=== PATIENT | female | born 1990 | race Two or more races ===

== ENCOUNTER 2024-02-06 20:20 | Emergency (ER) | payer SELFPAY ==
[2024-02-06 20:21] VITALS: PULSE 96; RESP 20; O2SAT 99
[2024-02-06 21:41] VITALS: BP 155/93; PULSE 84; RESP 18; TEMP 36.9; O2SAT 98
--- NOTE | 2024-02-06 22:18 | XR_ITS ---
Examination: Hand, left 3 views Technique: Hand AP, oblique, lateral 3 views Date and time of exam: February 16, 2024 1025 hrs. Indications: Injured the hand today, hand pain Findings: No acute fracture No dislocation No foreign body Impression: No acute fracture
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
== END 2024-02-07 01:06 | disposition home or self-care (01) ==
PROVIDERS: Emergency Provider Emergency Medicine
DX: S60.222A Contusion of left hand, initial encounter (principal); W22.8XXA Striking against or struck by other objects, initial encounter
CPT/HCPCS: 73130; 99283

== ENCOUNTER 2024-02-20 13:44 | Emergency (ER) | payer SELFPAY ==
[2024-02-20 13:56] VITALS: BP 114/77; PULSE 90; RESP 18; TEMP 36.9; O2SAT 98
--- NOTE | 2024-02-20 14:03 | XR_ITS ---
Examination: Complete OB ultrasound greater than 14 weeks Date and time of exam: February 20, 2024 1433 hrs. Indications: Decreased movement today Findings: Viable intrauterine single fetus with single amniotic sac presentation transverse head right lower abdomen Cardiac motion 141 BPM Placenta posterior lower Partial placenta previa grade 1 Umbilical cord insertion seen Adequate amniotic fluid Cervix 3.5 cm Right ovary 2.6 x 1.8 cm, left ovary obscured by bowel gas. Composite estimated gestational age based on BPD, head circumference, abdominal circumference, femur length is 15 weeks 0 days Estimated weight 107 g. Survey of intracranial anatomy, spinal anatomy, abdominal anatomy, four-chamber heart performed with no abnormalities identified. Impression: Viable intrauterine gestation transverse presentation Recommend two-week follow-up to assess placental position and exclude partial placenta previa
--- NOTE | 2024-02-20 14:03 | PD.EDRME ---
Rapid Medical Screening Exam RME Arrival date/time: 02/20/24 13:44 33-year-old female presents to the emergency department today complaints of not feeling her baby move for the last week patient reports being approximately 18 weeks Chief Complaint: General Adult/Misc Complain Time Seen by Provider: 02/20/24 13:47 Vital signs: Vital Signs Temperature 98.4 F 02/20/24 13:56 Pulse Rate 90 02/20/24 13:56 Respiratory Rate 18 02/20/24 13:56 Blood Pressure 114/77 02/20/24 13:56 Pulse Oximetry (%) 98 02/20/24 13:56 Oxygen Delivery Method Room Air 02/20/24 13:56
[2024-02-20 14:40] LABS: Collection Type, Urine Clean Catch
[2024-02-20 14:46] LABS: Basophils # (Auto) 0.1 Thou/mm3 (0.0-0.2); Basophils % (Auto) 1 % (0-2.5); Eosinophils # (Auto) 0.3 Thou/mm3 (0.0-0.5); Eosinophils % (Auto) 3 % (0-10); Hematocrit 35.5 % (36.0-46.0); Hemoglobin 11.9 g/dL (12.0-16.0); Immature Granulocytes % (Auto) 0 % (0-0); Immature Granulocytes Auto 0.04 Thou/mm3 (0.00-0.00); Lymphocytes % (Auto) 27 % (10-50); Mean Corpuscular HGB Conc 33.5 g/dl (31.0-37.0); Mean Corpuscular Hemoglobin 25.2 pg (25.0-35.0); Mean Corpuscular Volume 75 fL (80-100); Monocytes # (Auto) 0.5 Thou/mm3 (0.0-0.8); Monocytes % (Auto) 4 % (0-12); Neutrophils # (Auto) 7.2 Thou/mm3 (1.8-7.7); Neutrophils % (Auto) 65 % (37-80); Nucleated Red Blood Cell % 0 /100 WBC (0); Platelet Count 299 Thou/mm3 (140-440); RDW Standard Deviation 47.9 fL (36.4-46.3); Red Blood Count 4.72 Miln/mm3 (4.00-5.20); White Blood Count 11.1 Thou/mm3 (3.6-11.0)
[2024-02-20 14:50] LABS: Bilirubin,Urine Negative (Negative); Blood,Urine Negative (Negative); Clarity,Urine Clear (Clear/Hazy); Color,Urine Yellow (Lt Yel-Yel); Glucose, Urine 4+ (Negative); Ketones,Urine Trace (Negative); Leukocyte Esterase,Urine Negative (Negative); Nitrite,Urine Negative (Negative); Protein,Urine 1+ (Neg - Trace); RBC,Urine 4 /hpf (0-3); Specific Gravity,Urine 1.028 (1.001-1.035); Squamous Epithelial Cell,Urine 2 /hpf (0-5); Urobilinogen,Urine Negative mg/dL (0.0-1.0); WBC,Urine 1 /hpf (0-5)
[2024-02-20 15:04] LABS: Alanine Aminotransferase 50 U/L (10-49); Albumin, Serum 4.4 gm/dL (3.5-5.0); Albumin/Globulin Ratio 1.4 (1.2-2.2); Alkaline Phosphatase 95 U/L (46-116); Anion Gap 10 (7-16); Aspartate Amino Transferase 32 U/L (0-34); BUN/Creatinine Ratio 17 Ratio (12-20); Bilirubin,Total 0.3 mg/dL (0.3-1.2); Blood Urea Nitrogen 12 mg/dL (9-23); Calcium 9.2 mg/dL (8.3-10.6); Calcium (Corrected) 9.2 mg/dL (8.5-10.1); Carbon Dioxide 21.1 mMol/L (20.0-31.0); Chloride 104 mMol/L (98-107); Creatinine (Component) 0.7 mg/dL (0.6-1.3); Globulin 3.2 gm/dL (2.3-3.5); Glucose 227 mg/dL (74-106); Osmolality,Calculated 276 (275-295); Potassium 3.5 mMol/L (3.4-5.1); Sodium 135 mMol/L (136-145); Total Protein 7.6 gm/dL (5.7-8.2); eGFR > 60 See Note
[2024-02-20 15:35] VITALS: BP 126/83; PULSE 85; RESP 20; TEMP 37.3; O2SAT 99
[2024-02-20 15:35] LABS: Beta HCG,Quantitative 52800 mIU/mL (<5.0)
--- NOTE | 2024-02-20 16:29 | PD.EDADULT ---
ED General RME/HPI General Chief complaint: General Adult/Misc Complain Stated complaint: 18 WKS , NO MOVEMENT Time Seen by Provider: 02/20/24 13:47 Arrival date/time: 02/20/24 13:44 RME / HPI RME / HPI narrative: 33-year-old female presents to the emergency department today complaints of not feeling her baby move for the last week patient reports being approximately 18 weeks . Patient symptoms noted today. Patient denies any vaginal bleeding vaginal spotting dysuria frequency abdominal pain or other complaints. Related Data Allergies Allergy/AdvReac Type Severity Reaction Status Date / Time No Known Allergies Allergy Verified 02/20/24 13:48 Review of Systems Review of Systems Narrative Review of Systems: Review of system reviewed and within normal limits except mentioned in HPI ED Exam Narrative Physical exam: VITAL SIGNS: Reviewed. GENERAL APPEARANCE: Alert and interactive, follows commands, no acute distress, HEAD AND FACE: Non-traumatic. ENT: PERRL, pink conjunctivitis, eyelid no trauma, Mucous membrane moist. NECK: Supple, nontender, no nuchal rigidity. CHEST: No tenderness, no crepitus, no paradoxical movement, no retractions. LUNGS: Clear, well ventilated, symmetric, no rales, no wheezing, no ronchi, no stridor, good breath sounds bilaterally. HEART: Regular rate, regular rhythm, no murmur, no gallops. ABDOMEN: Soft, positive bowel sounds, nondistended, no guarding, nontender, no rebound, no masses, RECTAL: Deferred. GENITAL: Deferred. NEUROLOGICAL: Gross motor function intact sensory function intact, Appropriate for age. MUSCULOSKELETAL: low back nontender, full range of motion. EXTREMITIES: Nontender, full range of motion. SKIN: Color pink, dry, no rash, no lacerations, no abrasions, no contusions. LYMPHATICS: Deferred. Course Quality Measures none Orders Category Date Time Status US OB >= 14 weeks Fetus Stat Exams 02/20/24 14:03 Completed ABO/RH Type Stat Lab 02/20/24 14:22 Completed Beta HCG,Quantitative Stat Lab 02/20/24 14:22 Completed CBC Stat Lab 02/20/24 14:22 Completed Comprehensive Metabolic Panel Stat Lab 02/20/24 14:22 Completed UA [Urinalysis] Stat Lab 02/20/24 14:26 Completed Urine Culture Stat Lab 02/20/24 14:26 Received Vital Signs Vital signs: Vital Signs Temperature 98.4 F 02/20/24 13:56 Pulse Rate 90 02/20/24 13:56 Respiratory Rate 18 02/20/24 13:56 Blood Pressure 114/77 02/20/24 13:56 Pulse Oximetry (%) 98 02/20/24 13:56 Oxygen Delivery Method Room Air 02/20/24 13:56 MDM Patient data External records reviewed:: None Clinical information provided by:: patient Social determinants that could affect healthcare access:: none Patient has the following chronic illnesses:: None How is presenting disease/condition affected by chronic disease/condition?: no chronic disease Evaluation data The following diagnostics were reviewed and interpreted by me:: lab results and radiology exam(s) Lab and/or radiology exams considered but not ordered:: None Interpretation Summary: Laboratory workup all came back unremarkable ultrasound of showed single live intrauterine gestation about 15 weeks gestation no abnormality noted heartbeat of 140 bpm results discussed with the patient. Medications Medications considered but not ordered:: None Medication administrations:: None Consultations Consultation(s) initiated? (list below): No Diagnosis Differential Diagnosis ED Complaint MDM: demise, distress, normal intrauterine gestation 15 weeks Most likely diagnosis given after review of the tests above:: 15 weeks Admission Indicated Admission indicated?: not indicated Explain why admission is indicated or not indicated:: Stable Admission Request Was there a request for admission?: No Disposition Plan Disposition Plan: Discharge Discharge Attestation Discharge Attestation: The patient was given an opportunity to ask questions and understood the discharge instructions. Discharge instructions specifically effects, indications for sooner follow up or return to the emergency department, and the expected course of current diagnosis. Patient condition: Stable Medical Decision Making Differential Diagnosis Differential Diagnosis: demise, distress, normal intrauterine gestation 15 weeks Lab Data 02/20/24 14:22 02/20/24 14:22 Labs: Lab Results 02/20/24 02/20/24 Range/Units 14:22 14:26 WBC 11.1 H (3.6-11.0) Thou/mm3 RBC 4.72 (4.00-5.20) Miln/mm3 Hgb 11.9 L (12.0-16.0) g/dL Hct 35.5 L (36.0-46.0) % MCV 75 L (80-100) fL MCH 25.2 (25.0-35.0) pg MCHC 33.5 (31.0-37.0) g/dl RDW Std Deviation 47.9 H (36.4-46.3) fL Plt Count 299 (140-440) Thou/mm3 Neut % (Auto) 65 (37-80) % Lymph % (Auto) 27 (10-50) % [place] % (Auto) 4 (0-12) % Eos % (Auto) 3 (0-10) % Baso % (Auto) 1 (0-2.5) % Neut # (Auto) 7.2 (1.8-7.7) Thou/mm3 Lymph # (Auto) 3.0 (1.0-4.8) Thou/mm3 [place] # (Auto) 0.5 (0.0-0.8) Thou/mm3 Eos # (Auto) 0.3 (0.0-0.5) Thou/mm3 Baso # (Auto) 0.1 (0.0-0.2) Thou/mm3 Immature Gran # (Auto) 0.04 H (0.00-0.00) Thou/mm3 Absolute Nucleated RBC 0.00 (0.00-0.00) Thou/mm3 Immature Gran % 0 (0-0) % Nucleated RBC % 0 (0) /100 WBC Sodium 135 L (136-145) mMol/L Potassium 3.5 (3.4-5.1) mMol/L Chloride 104 (98-107) mMol/L Carbon Dioxide 21.1 (20.0-31.0) mMol/L Anion Gap 10 (7-16) BUN 12 (9-23) mg/dL Creatinine 0.7 (0.6-1.3) mg/dL Estim Creat Clear Calc Not Performed. eGFR > 60 (60 - ) See Note BUN/Creatinine Ratio 17 (12-20) Ratio Glucose 227 H (74-106) mg/dL Calculated Osmolality 276 (275-295) Calcium 9.2 (8.3-10.6) mg/dL Corrected Calcium 9.2 (8.5-10.1) mg/dL Total Bilirubin 0.3 (0.3-1.2) mg/dL AST 32 (0-34) U/L ALT 50 H (10-49) U/L Alkaline Phosphatase 95 (46-116) U/L Total Protein 7.6 (5.7-8.2) gm/dL Albumin 4.4 (3.5-5.0) gm/dL Globulin 3.2 (2.3-3.5) gm/dL Albumin/Globulin Ratio 1.4 (1.2-2.2) Beta HCG, Quant 54982 (<5.0) mIU/mL Ur Collection Type Clean Catch Urine Color Yellow (Lt Yel-Yel) Urine Clarity Clear (Clear/Hazy) Urine pH 6.0 (5.0-7.0) Ur Specific [place] 1.028 (1.001-1.035) Urine Protein 1+ A (Neg - Trace) Urine Glucose (UA) 4+ A (Negative) Urine Ketones Trace (Negative) Urine Blood Negative (Negative) Urine Nitrite Negative (Negative) Urine Bilirubin Negative (Negative) Urine Urobilinogen (Auto) Negative (0.0-1.0) mg/dL Ur Leukocyte Esterase Negative (Negative) Urine RBC 4 H (0-3) /hpf Urine WBC 1 (0-5) /hpf Ur Squamous Epith Cells 2 (0-5) /hpf Urine Bacteria None (None) Blood Type O Positive Blood Bank Wristband ID Yes Discharge Plan Plan Patient Disposition: HOME (Self Care) Disposition Comment: Stable Prescriptions/Referrals Referrals: No Primary/Family,Physician [Primary Care Provider] - In 1 week Problem List Clinical Impression: and not yet delivered in second trimester Patient/Caregiver Discharge Instructions Discharge Activity: activity as tolerated Education Materials: Preparing for Additional Instructions: Thank you for the opportunity for serving you today. You are stable for discharged . You are advised to: Follow-up with your PCP in 1 to 2 days Return to ED for worsening of symptoms Print Language: Mohawk Stand Alone Forms: Ghada Award Info., Patient Portal Info Letter PA/HERB Supervising Physician ERASMO/HERB Supervising Physician: MD Davida
== END 2024-02-20 16:38 | disposition home or self-care (01) ==
PROVIDERS: Nurse Practitioner Primary Care; Emergency Provider Emergency Medicine
DX: O36.8120 Decreased fetal movements, second trimester, not applicable or unspecified (principal); Z3A.18 18 weeks gestation of pregnancy
CPT/HCPCS: 36415; 76805; 80053; 81001; 84702; 85025; 86900; 86901; 87086; 99284

== ENCOUNTER 2024-05-23 10:19 | Outpatient (CLI) | payer MEDICAID, SELFPAY ==
[2024-05-23 10:36] VITALS: BP 121/79; PULSE 88
[2024-05-23 10:49] VITALS: BP 121/79; PULSE 86; RESP 18; RESP 99; TEMP 36.6
[2024-05-23 11:03] VITALS: BMI 35.9
== END 2024-05-23 11:33 | disposition home or self-care (01) ==
LOC: S4S1 10:20 → S4SX 10:20
PROVIDERS: Referring Provider Obstetrics & Gynecology; Visit Provider Obstetrics & Gynecology
DX: Z34.83 Encounter for supervision of other normal pregnancy, third trimester (principal); Z36.9 Encounter for antenatal screening, unspecified; Z3A.30 30 weeks gestation of pregnancy
CPT/HCPCS: 59025

== ENCOUNTER 2024-06-06 11:03 | Outpatient (CLI) | payer SELFPAY ==
[2024-06-06] VITALS (17 sets, daily range): BP systolic 125–140; BP diastolic 72–84; PULSE 84–100; RESP 18–100; TEMP 36.8; O2SAT 90–100; BMI 36.5
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
[2024-06-06] MEDS: metFORMIN 500 MG TABLET PO (14:50)
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
== END 2024-06-06 16:20 | disposition home or self-care (01) ==
LOC: S4S1 11:04 → S4SX 11:05
PROVIDERS: Referring Provider Obstetrics & Gynecology; Visit Provider Obstetrics & Gynecology
DX: Z34.83 Encounter for supervision of other normal pregnancy, third trimester (principal); Z36.9 Encounter for antenatal screening, unspecified; Z3A.32 32 weeks gestation of pregnancy
CPT/HCPCS: 59025; A9270

== ENCOUNTER 2024-06-14 08:39 | Outpatient (AMB) | payer MEDICAID, SELFPAY ==
[2024-06-14 08:56] VITALS: BP 110/77; PULSE 89; RESP 16; TEMP 36.2; O2SAT 98
--- NOTE | 2024-06-14 08:56 | AMB.OBINITIA ---
Vital Signs 06/14/24 08:56 Weight 84.368 kg Weight Measurement Method Standing Scale BP 110/77 Blood Pressure Source Automatic Cuff Blood Pressure Location Left Upper Arm Position Sitting Respiration 16 Pulse 89 Pulse Source Monitor Temp 97.2 F Temp Source Oral Pulse Oximetry (%) 98 Oxygen Delivery Method Room Air Allergies/Home Meds Allergies & Medications Allergies No Known Allergies Allergy (Verified 06/15/24 09:37) Medication Reconciliation insulin glargine 100 unit/mL (3 mL) subcutaneous pen (Basaglar KwikPen U-100 Insulin) 30 unit (0.3 mL) subcut QPM 30 days #9 mL 06/14/24 [Rx Confirmed 06/15/24] insulin lispro 100 unit/mL subcutaneous pen (Humalog KwikPen (U-100) Insulin) 10 unit (0.1 mL) subcut TID 30 days #9 mL 06/14/24 [Rx Confirmed 06/15/24] pen needle, diabetic 29 gauge x 1/2 #200 ea 06/14/24 [Rx Confirmed 06/15/24] Intake Visit Data Collection New Patient or Established: Established Patient (seen at [facility] within 3 years) Reason for Visit:: care transfer Seen by Clinical Staff ONLY (RN/MA): No Bung Sewer Required: Yes Bung Sewer's name/title: TATO PATEL Do You Feel Safe at Home: Yes Authorities Contacted: N/A PCP or OBGYN visit in last 3 months: Yes Hx Now: Yes Are you currently on any form of Control: No Last menstrual period: 11/01/23 Pain Present Currently: No Pain Scale Used: Wade-Bethea/Numerical Pain scale:: 0 Smoking Status Smoking Status: Never smoker Questionnaires Covid-19 Vaccine Questionnaire Has patient been vacinated for Covid-19 Have you been vacinated for Covid-19: No PHQ-9 PHQ-2 Over the last 2 weeks, how often have you been bothered by any of the following problems? 1. Little interest or pleasure in doing things: not at all 2. Feeling down, depressed, or hopeless: not at all Total score: 0 PHQ-9 3. Trouble falling or staying asleep, or sleeping too much: Not at all 4. Feeling tired or having little energy: Not at all 5. Poor appetite or overeating: Not at all 6. Feeling bad about yourself - or that you are a failure or have let yourself or your family down: Not at all 7. Trouble concentrating on things, such as reading the newspaper or watching television: Not at all 8. Moving or speaking so slowly that other people could have noticed? - Or the opposite - being so fidgety or restless that you have been moving around a lot more than usual: not at all 9. Thoughts that you would be better off or of hurting yourself in some way: Not at all Total score: 0 Source: Developed by Drs. Parviz Acosta, Dianna Gore, Damien Loredo and colleagues, with an educational keely from [employer]. Depression screen completed yes Social History Living Situation History Marital Status: Single Lives With: Family Housing: Apartment Tobacco History Smoking Status: Never smoker Second Hand Smoke Exposure: No Alcohol History Alcohol Intake: Former Alcohol Intake Frequency: A Few Times a Week Domestic Abuse History Do You Feel Safe at Home: Yes Past Medical History Past Medical History Have you ever been diagnosed with any of the following: Neurological Problems Cerebrovascular Accident (CVA): No Transient Ischemic Attacks (TIA): No Dementia: No Alzheimer's Disease: No Parkinson's Disease: No Brain Tumor: No Meningitis: No Seizures: No Epilepsy: No Multiple Sclerosis: No Cerebral Palsy: No Amyotrophic Lateral Sclerosis (ALS/Surekha Gehrig's): No Guillain-[place] Syndrome: No Cardiology Problems Myocardial Infarction: No Cardiac Arrhythmia: No Atrial Fibrillation: No Angina: No Heart Murmur: No Coronary Artery Disease: No Atherosclerotic Heart Disease: No Peripheral Vascular Disease: No Hypertension: No Respiratory Problems Chronic Obstructive Pulmonary Disease (COPD): No Asthma: No Bronchitis: No Pneumonia: No Tuberculosis: No Hx Cough: No Cough: No Wheezing: No Chest Deformities: No Smoking: No Smoking Cessation Counseling: No Smoking Exposure: No Tobacco Use: No Stomache/Intestinal Problems Liver Cancer: No Hepatitis: No Cirrhosis: No Pancreatic Cancer: No Pancreatitis: No Gall Bladder Disease: No Diverticulosis: No Crohn's Disease: No Obstructive Bowel: No Genital/Urinary Problems Chronic Kidney Disease: No Renal Disease: No Kidney Stones: No Dialysis: No Reproductive Problems Breast Cancer: No Endometriosis: No Fibroids: No Genital Herpes: No Gonorrhea: No Pelvic Inflammatory Disease: No Polycystic Ovarian Syndrome: No Previous Pregnancies: Yes Uterine Prolapse: No Musculoskeletal Problems Muscular Dystrophy: No Myasthenia Gravis: No Marfan's Syndrome: No Bone Cancer: No Gout: No Fractures: No Head,Eye,Nose,Throat Problems Cataracts: No Glaucoma: No Blind: No Retinal Detachment: No Macular Degeneration: No Chronic Ear Infections: No Deafness: No Eye Prosthesis: No Endocrine Problems Diabetes Mellitus Type 1: No Diabetes Mellitus Type 2: No Hypoglycemia: No [place]'s Syndrome: No [place]'s Disease: No Adrenal Disease: No Graves' Disease: No Blood Problems Anemia: No Leukemia: No Hemophilia: No Thalassemia: No Sickle Cell Disease: No Clotting Problems: No Psychologic Problems Schizophrenia: No Recreational Drug Use: No Bipolar Disorder: No Depression: No Anxiety: No Behavior Problems: No Depression: No Other Problems Hospitalization: No Autoimmune Disease: No Down Syndrome: No Autism: No Developmental Delay: No Cosmetic Surgery: No Shingles: No Falls: No Hepatitis A: No Hepatitis B: No Hepatitis C: No Surgical History Angioplasty: No Appendectomy: No Bariatric Surgery: No Breast Surgery: No Cancer Surgery: No History of Present Illness HPI Narrative Chief Complaint Transfer of care at 32 weeks 2 days gestation History of Present Illness Hetal Montes is a 33-year-old at 32 weeks and 2 days gestation who is transferring care from [facility]. She has a history of pre- gestational diabetes, which is currently not well-controlled. The patient's last menstrual period was on 11/01/2023, with an estimated due date of August 07, 2024. This is her second , with her previous delivery being a full-term vaginal 21 years ago. Hetal has been diagnosed with gestational diabetes and is currently taking metformin 500mg BID and low-dose aspirin 162mg daily. However, her diabetes is not at goal, and she has been non-compliant with bringing her records to visits. Hetal is Nepali-speaking and has had late entry to care. She has not been consistently monitoring or recording her blood sugar levels. When asked about her glucose readings, she presented a glucometer showing very high values, with some readings up to 400 mg/dL. The patient does not appear to understand the severity of her uncontrolled gestational diabetes or its potential impact on her . 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 Laboratory, Imaging, and Diagnostic Test Results - Blood group: O-positive - Antibody screen: Negative - VDRL: Negative - Urine culture: Mixed - Hepatitis B: Negative - HIV: Negative - Gonorrhea: Negative - Chlamydia: Negative - Rubella: Immune - PAP smear (05/18/2024): Negative - Hemoglobin A1C (05/13/2024): 8.7 - Protein creatinine ratio: 271 - Glucose tolerance test: - 1-hour: 300 - 3-hour: 138, 259, 244, 241 - OB ultrasound (05/12/2024): - Estimated weight: 984 grams (2 pounds, 3 ounces) - ELLE: 19.15 - Biophysical profile: 12/09 - No gross structural abnormalities - Weight: 35th percentile OB Initial Visit OB Flowsheet OB Flowsheet Initial Weight: Not Recorded Date <del>?</del> EGA Weight Edema CTX Effacement BP Fundal ht Pres Dilation Effacement Station Visit Note Alb Glu FHR Mov 06/14/24 <del>?</del> 32w 2d 84.368 kg 110/77 Initial OB visit, very high risk with poorly controlled diabetes, please see detailed HPI in chart Initial OB visit, very high risk with poorly controlled diabetes, please see detailed HPI in chart - Blood group: O-positive - Antibody screen: Negative - VDRL: Negative - Urine culture: Mixed - Hepatitis B: Negative - HIV: Negative - Gonorrhea: Negative - Chlamydia: Negative - Rubella: Immune - PAP smear (05/18/2024): Negative - Hemoglobin A1C (05/13/2024): 8.7 - Protein creatinine ratio: 271 - Glucose tolerance test: - 1-hour: 300 - 3-hour: 138, 259, 244, 241 - OB ultrasound (05/12/2024): - Estimated weight: 984 grams (2 pounds, 3 ounces) - ELLE: 19.15 - Biophysical profile: 12/09 - No gross structural abnormalities - Weight: 35th percentile 165 06/15/24 <del>?</del> 32w 3d 83.234 kg 116/77 - Initiate insulin therapy with two types of insulin (one provided, one pending) - Educate patient on insulin administration technique: - Use of insulin pen - Proper injection sites (demonstrated abdominal injection) - Timing of injections (immediately before meals) - Frequency of injections (4 times daily) - Refer patient to [facility] health educator for comprehensive insulin education and supervised practice - Patient to return to pharmacy to obtain missing insulin - Follow-up appointment scheduled in one week - Patient instructed to bring all insulin supplies to follow-up appointment 165 Menstrual History Menstrual reliability: approximate (month known) Flow: normal Menstrual regularity: regular Monthly: Yes Age at menarche: 9 On control pills at conception: No Date of positive home test: 12/12/23 Associated symptoms (LMP): Reports fatigue OB History : 2 Para: 1 # of Living Children: 1 Delivery History 1st : Child's name: RANI date: 07/15/03 sex: male Delivery type: vaginal Delivery complications: NONE History of depression before or after : No Infection History & Risk Evaluation History of STDs: none Genetic Screening & History Genetic Screening/Teratology Counseling - Includes patient, baby's father, or anyone in either family with: 1. Patient's age 35 years or older as of estimated date of delivery: Yes 2. Thalassemia (Croatian, Citizen Of [place], Mediterranean, or Background); MCV less than 80: No 3. Neural Tube Defect (Meningomyelocele, Spina Bifida, or Anencephaly): No 4. Congenital Heart Defect: No 5. Down Syndrome: No 6. Rafat-Sachs (Ashkenazi Pentecostal, Cajun, Chinese [place]): No 7. Harpreet Disease (Ashkenazi Pentecostal): No 8. Familial Dysautonomia (Ashkenazi Pentecostal): No 9. Sickle Cell Disease or Trait (): No 10. Hemophilia or other blood disorders: No 11. Muscular Dystrophy: No 12. Cystic Fibrosis: No 13. Lizzeth's Chorea: No 14. Mental Retardation/Autism: No 15. Other inherited genetic or chromosomal disorder: No 16. Maternal Metabolic Disorder (EG,TYPE 1 Diabetes, PKU): No 17. Patient or baby's father had a child with defects not listed above: No 18. Recurrent loss or a stillbirth: No 19. Medications (including supplements, vitamins, herbs or otc drugs)/illicit/recreational drugs/alcohol since last menstrual period: No 20. Any other: No Infection History 1. Live with someone with TB or exposed to TB: No 2. Rash or viral illness since last menstrual period: No 3. Hepatitis B,C: No Other (see comments) Source: [employer] Review of Systems Constitutional Constitutional: Reports fatigue Endocrine Endocrine: Reports fatigue Exam General Limitations: no limitations General Appearance: alert, in no apparent distress, comfortable, cooperative, healthy appearing, well developed and well groomed Head Head exam: atraumatic, normocephalic and normal inspection Chest Chest inspection: Present normal inspection and symmetric chest wall rise Abdominal Abdominal exam: Present soft and normal bowel sounds Psych Psychiatric exam: Present normal affect and normal mood Skin Skin exam: Present warm, dry, intact and normal color Assessment & Plan Diagnosis / Problem List (1) Type 2 diabetes mellitus affecting in third trimester, antepartum: Status: Acute (2) Poorly controlled type 2 diabetes mellitus: Status: Acute (3) Supervision of high risk , unspecified, third trimester: Status: Acute (4) Type 2 diabetes mellitus affecting in third trimester, antepartum: Status: Acute (5) Poorly controlled type 2 diabetes mellitus: Status: Acute (6) Supervision of high risk , unspecified, third trimester: Status: Acute Plan Hetal Montes is a 33-year-old at 32 weeks 2 days gestation, transferring care with gestational diabetes, not at goal, and maternal obesity. Gestational diabetes mellitus, uncontrolled Assessment: Patient has poorly controlled gestational diabetes with recent hemoglobin A1C of 8.7% on 05/13/2024. She is currently on metformin 500 mg BID, but blood glucose readings are consistently elevated, with values reaching up to 400 mg/dL. This level of hyperglycemia poses significant risks to well-being, including potential demise. Previous glucose tolerance test results (1-hour: 300 mg/dL; 3-hour: 138, 259, 244, and 241 mg/dL) confirm the diagnosis and severity of glucose intolerance. Plan: - Discontinue metformin 500 mg BID - Initiate insulin therapy (specific regimen to be determined) - Provide patient education on insulin administration technique - Schedule follow-up appointment in 1 week to reassess glucose control - Instruct patient to bring glucose log to next appointment - Emphasize the importance of glycemic control for well-being Advanced maternal age Assessment: Patient is a 33-year-old at 32 weeks 2 days gestation based on LMP of 11/01/2023, with AUGUSTINE of 08/07/2024. Advanced maternal age increases risks for various complications and anomalies. Recent ultrasound on 05/12/2024 showed EFW of 984 grams (35th percentile), ELLE 19.15, and BPP 10/10 with no gross structural abnormalities noted. Plan: - Refer patient for growth ultrasound with maternal- medicine specialist in [place] - Continue low-dose aspirin 162 mg daily for preeclampsia prevention - Monitor growth and well-being with serial ultrasounds Maternal obesity Assessment: Patient has maternal obesity, which increases risks for various complications, including gestational diabetes and hypertensive disorders of . This condition likely contributes to the patient's current glucose intolerance. 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 This delay may have contributed to suboptimal management of gestational diabetes and other potential -related issues. Plan: - Ensure all standard labs and screenings are up to date - Emphasize importance of regular visits and adherence to medical recommendations Office Procedures OB Clinic LOC & Office Proc's Nursing/Assessment Patient Status: Established Patient OB Clinic Nursing Assessment: Medication Reconciliation, Update PMH in EMR and Vital Signs OB Clinic Coordination of Care: Complex Care and Chronic Disease 1-5, Consent,records obtained, informed consent, Education Simp Pt/Fam, Lab and Imaging orders, Results/Orders obtained and Staff clarify orders Special Needs: Heart tones Established Patient Charge Established Patient Point Assignment: 135 Established Patient Point Charge: EP Level 4 (120-155)
== END 2024-06-14 09:26 | disposition home or self-care (01) ==
LOC: HODSOBC 08:39
PROVIDERS: Supervising Provider Obstetrics & Gynecology; Visit Provider Obstetrics & Gynecology
DX: O09.523 Supervision of elderly multigravida, third trimester (principal); O24.415 Gestational diabetes mellitus in pregnancy, controlled by oral hypoglycemic drugs; O99.213 Obesity complicating pregnancy, third trimester; Z3A.32 32 weeks gestation of pregnancy; O99.283 Endocrine, nutritional and metabolic diseases complicating pregnancy, third trimester; E74.39 Other disorders of intestinal carbohydrate absorption; Z91.199 Patient's noncompliance with other medical treatment and regimen due to unspecified reason; Z91.148 Patient's other noncompliance with medication regimen for other reason
CPT/HCPCS: 99214; G0463

== ENCOUNTER 2024-06-15 09:24 | Outpatient (AMB) | payer MEDICAID, SELFPAY ==
[2024-06-15 09:37] VITALS: BP 116/77; PULSE 92; RESP 16; TEMP 36.2; O2SAT 98
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
== END 2024-06-15 10:18 | disposition home or self-care (01) ==
LOC: HODSOBC 09:24
PROVIDERS: PCP Obstetrics & Gynecology; Referring Provider Obstetrics & Gynecology; Supervising Provider Obstetrics & Gynecology; Visit Provider Obstetrics & Gynecology
DX: O09.893 Supervision of other high risk pregnancies, third trimester (principal); Z3A.32 32 weeks gestation of pregnancy; O24.414 Gestational diabetes mellitus in pregnancy, insulin controlled; T38.3X6A Underdosing of insulin and oral hypoglycemic [antidiabetic] drugs, initial encounter; Z91.138 Patient's unintentional underdosing of medication regimen for other reason
CPT/HCPCS: 99213; G0463

== ENCOUNTER 2024-06-22 10:20 | Outpatient (AMB) | payer MEDICAID, SELFPAY ==
[2024-06-22 11:07] VITALS: BP 124/81; PULSE 97; RESP 18; TEMP 36.2; O2SAT 98
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
== END 2024-06-22 11:22 | disposition home or self-care (01) ==
LOC: HODSOBC 10:20
PROVIDERS: PCP Obstetrics & Gynecology; Referring Provider Obstetrics & Gynecology; Supervising Provider Obstetrics & Gynecology; Visit Provider Obstetrics & Gynecology
DX: O09.523 Supervision of elderly multigravida, third trimester (principal); O09.893 Supervision of other high risk pregnancies, third trimester; O24.414 Gestational diabetes mellitus in pregnancy, insulin controlled; Z3A.33 33 weeks gestation of pregnancy
CPT/HCPCS: 99214; G0463

== ENCOUNTER 2024-06-22 12:02 | Outpatient (CLI) | payer MEDICAID, SELFPAY ==
[2024-06-22] VITALS (16 sets, daily range): BP systolic 107–118; BP diastolic 60–74; PULSE 64–104; RESP 18–98; TEMP 36.7; O2SAT 97–99; BMI 38.8
--- NOTE | 2024-06-22 12:06 | XR_ITS ---
Examination: Complete OB ultrasound greater than 14 weeks Date and time of exam: June 22, 2024 1307 hours INDICATIONS: Gestational hypertension, diagnosis diabetes Findings: Viable intrauterine single fetus with single amniotic sac presentation cephalic Cardiac motion 155 BPM Placenta posterior grade 2 Clinical: Insertion 3 vessel seen Amniotic fluid index 15.8 cm spine maternal right Cervix 3.4 cm Ovaries obscured by bowel gas. Composite estimated gestational age based on BPD, head circumference, abdominal circumference, femur length is 33 weeks 1 day Estimated weight 2196 g. Survey of intracranial anatomy, spinal anatomy, abdominal anatomy, four-chamber heart performed with no abnormalities identified. Impression: Viable intrauterine gestation cephalic presentation.
[2024-06-22 12:26] LABS: Collection Type, Urine Clean Catch
[2024-06-22 12:33] LABS: Basophils # (Auto) 0.1 Thou/mm3 (0.0-0.2); Basophils % (Auto) 1 % (0-2.5); Eosinophils # (Auto) 0.2 Thou/mm3 (0.0-0.5); Eosinophils % (Auto) 2 % (0-10); Hematocrit 31.1 % (36.0-46.0); Hemoglobin 10.6 g/dL (12.0-16.0); Immature Granulocytes % (Auto) 0 % (0-0); Immature Granulocytes Auto 0.03 Thou/mm3 (0.00-0.00); Lymphocytes # (Auto) 2.3 Thou/mm3 (1.0-4.8); Lymphocytes % (Auto) 24 % (10-50); Mean Corpuscular HGB Conc 34.1 g/dl (31.0-37.0); Mean Corpuscular Hemoglobin 26.2 pg (25.0-35.0); Mean Corpuscular Volume 77 fL (80-100); Monocytes # (Auto) 0.6 Thou/mm3 (0.0-0.8); Monocytes % (Auto) 6 % (0-12); Neutrophils # (Auto) 6.7 Thou/mm3 (1.8-7.7); Neutrophils % (Auto) 68 % (37-80); Nucleated Red Blood Cell % 0 /100 WBC (0); Platelet Count 304 Thou/mm3 (140-440); RDW Standard Deviation 36.7 fL (36.4-46.3); Red Blood Count 4.05 Miln/mm3 (4.00-5.20); White Blood Count 9.9 Thou/mm3 (3.6-11.0)
[2024-06-22 12:44] LABS: Creatinine,Random Urine 81 mg/dL (30-125); Protein Total, Random Urine 28 mg/dL (1-14)
[2024-06-22 12:54] LABS: Bilirubin,Urine Negative (Negative); Blood,Urine Negative (Negative); Clarity,Urine Clear (Clear/Hazy); Color,Urine Lt-Yellow (Lt Yel-Yel); Glucose, Urine 4+ (Negative); Hyaline Casts,Urine < 1 /hpf (0-1); Ketones,Urine Negative (Negative); Leukocyte Esterase,Urine Positive (Negative); Nitrite,Urine Negative (Negative); Protein,Urine Negative (Neg - Trace); RBC,Urine 4 /hpf (0-3); Specific Gravity,Urine 1.027 (1.001-1.035); Squamous Epithelial Cell,Urine 4 /hpf (0-5); Urobilinogen,Urine Negative mg/dL (0.0-1.0); WBC,Urine 3 /hpf (0-5)
[2024-06-22 12:57] LABS: Alanine Aminotransferase 19 U/L (10-49); Albumin, Serum 3.5 gm/dL (3.5-5.0); Albumin/Globulin Ratio 1.1 (1.2-2.2); Alkaline Phosphatase 189 U/L (46-116); Anion Gap 9 (7-16); Aspartate Amino Transferase 33 U/L (0-34); BUN/Creatinine Ratio 13 Ratio (12-20); Bilirubin,Total 0.3 mg/dL (0.3-1.2); Blood Urea Nitrogen 8 mg/dL (9-23); Calcium 8.1 mg/dL (8.3-10.6); Calcium (Corrected) 8.5 mg/dL (8.5-10.1); Carbon Dioxide 20.6 mMol/L (20.0-31.0); Chloride 109 mMol/L (98-107); Creatinine (Component) 0.6 mg/dL (0.6-1.3); Estimated Creatinine Clearance 117.2 mL/min (>60); Globulin 3.1 gm/dL (2.3-3.5); Glucose 166 mg/dL (74-106); LDH (Lactate Dehydrogenase) 209 U/L (120-246); Osmolality,Calculated 279 (275-295); Potassium 3.7 mMol/L (3.4-5.1); Sodium 139 mMol/L (136-145); Total Protein 6.6 gm/dL (5.7-8.2); Uric Acid 2.9 mg/dL (3.1-7.8); eGFR > 60 See Note
[2024-06-22 13:04] LABS: Fibrinogen 478 mg/dL (175-375); Prothrombin Time 10.5 Seconds (9.0-12.2)
--- NOTE | 2024-06-22 13:57 | PC.NURSE ---
8190 discharge instructions reviewed, labor precautions, kick counts, diabetic diet, preeclampisa precautions, copies given, instructied pt to f/u with next md appt. pt agrees/understands.
== END 2024-06-22 13:50 | disposition home or self-care (01) ==
LOC: S4S1 12:03 → S4SX 12:03
PROVIDERS: Obstetrics & Gynecology; Referring Provider Obstetrics & Gynecology; Visit Provider Obstetrics & Gynecology
DX: O24.913 Unspecified diabetes mellitus in pregnancy, third trimester (principal); O16.3 Unspecified maternal hypertension, third trimester; Z3A.33 33 weeks gestation of pregnancy
CPT/HCPCS: 36415; 59025; 76805; 80053; 81001; 82570; 83615; 84156; 84550; 85025; 85384; 85610; 85730

== ENCOUNTER 2024-06-27 09:20 | Outpatient (AMB) | payer MEDICAID, SELFPAY ==
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
[2024-06-27 10:02] VITALS: BP 131/86; PULSE 92; RESP 18; TEMP 36.9; O2SAT 98; BMI 38.6
== END 2024-06-27 10:14 | disposition home or self-care (01) ==
LOC: HODSOBC 09:20
PROVIDERS: PCP Obstetrics & Gynecology; Referring Provider Obstetrics & Gynecology; Supervising Provider Obstetrics & Gynecology; Visit Provider Obstetrics & Gynecology
DX: O09.523 Supervision of elderly multigravida, third trimester (principal); Z3A.34 34 weeks gestation of pregnancy; O09.893 Supervision of other high risk pregnancies, third trimester; O24.113 Pre-existing type 2 diabetes mellitus, in pregnancy, third trimester; E11.65 Type 2 diabetes mellitus with hyperglycemia; Z79.4 Long term (current) use of insulin
CPT/HCPCS: 99213; 99214; G0463

== ENCOUNTER 2024-07-06 08:02 | Outpatient (AMB) | payer MEDICAID, SELFPAY ==
[2024-07-06 08:31] VITALS: BP 118/81; PULSE 82; RESP 18; TEMP 36; O2SAT 98; BMI 40.1
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
== END 2024-07-06 09:12 | disposition home or self-care (01) ==
LOC: HODSOBC 08:02
PROVIDERS: Supervising Provider Obstetrics & Gynecology; Visit Provider Obstetrics & Gynecology
DX: O09.523 Supervision of elderly multigravida, third trimester (principal); O09.893 Supervision of other high risk pregnancies, third trimester; O24.113 Pre-existing type 2 diabetes mellitus, in pregnancy, third trimester; Z3A.35 35 weeks gestation of pregnancy; Z79.4 Long term (current) use of insulin
CPT/HCPCS: 99213; G0463

== ENCOUNTER 2024-07-13 09:32 | Outpatient (AMB) | payer MEDICAID, SELFPAY ==
[2024-07-13 09:41] VITALS: BP 126/82; PULSE 80; RESP 18; TEMP 36.2; O2SAT 97; BMI 41.0
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
== END 2024-07-13 10:40 | disposition home or self-care (01) ==
LOC: HODSOBC 09:32
PROVIDERS: PCP Obstetrics & Gynecology; Referring Provider Obstetrics & Gynecology; Supervising Provider Obstetrics & Gynecology; Visit Provider Obstetrics & Gynecology
DX: O09.893 Supervision of other high risk pregnancies, third trimester (principal); O24.414 Gestational diabetes mellitus in pregnancy, insulin controlled; O09.513 Supervision of elderly primigravida, third trimester; Z3A.36 36 weeks gestation of pregnancy; Z55.6 Problems related to health literacy
CPT/HCPCS: 99213; G0463

== ENCOUNTER 2024-07-13 11:44 | Observation (INO) | payer MEDICAID, SELFPAY ==
[2024-07-13] VITALS (22 sets, daily range): BP systolic 133–163; BP diastolic 69–93; PULSE 66–80; RESP 18–100; TEMP 36.3; O2SAT 95–100
[2024-07-13 12:33] LABS: Basophils % (Auto) 0 % (0-2.5); Eosinophils # (Auto) 0.1 Thou/mm3 (0.0-0.5); Eosinophils % (Auto) 2 % (0-10); Hematocrit 28.2 % (36.0-46.0); Hemoglobin 9.5 g/dL (12.0-16.0); Immature Granulocytes % (Auto) 0 % (0-0); Immature Granulocytes Auto 0.04 Thou/mm3 (0.00-0.00); Lymphocytes % (Auto) 22 % (10-50); Mean Corpuscular HGB Conc 33.7 g/dl (31.0-37.0); Mean Corpuscular Volume 77 fL (80-100); Monocytes # (Auto) 0.5 Thou/mm3 (0.0-0.8); Monocytes % (Auto) 6 % (0-12); Neutrophils # (Auto) 6.4 Thou/mm3 (1.8-7.7); Neutrophils % (Auto) 70 % (37-80); Nucleated Red Blood Cell % 0 /100 WBC (0); Platelet Count 223 Thou/mm3 (140-440); RDW Standard Deviation 38.2 fL (36.4-46.3); Red Blood Count 3.66 Miln/mm3 (4.00-5.20); White Blood Count 9.2 Thou/mm3 (3.6-11.0)
[2024-07-13 12:51] LABS: Alanine Aminotransferase 13 U/L (10-49); Albumin, Serum 3.1 gm/dL (3.5-5.0); Albumin/Globulin Ratio 1.1 (1.2-2.2); Alkaline Phosphatase 235 U/L (46-116); Anion Gap 9 (7-16); Aspartate Amino Transferase 28 U/L (0-34); BUN/Creatinine Ratio 12 Ratio (12-20); Bilirubin,Total 0.3 mg/dL (0.3-1.2); Blood Urea Nitrogen 7 mg/dL (9-23); Calcium 7.4 mg/dL (8.3-10.6); Calcium (Corrected) 8.1 mg/dL (8.5-10.1); Carbon Dioxide 21.8 mMol/L (20.0-31.0); Chloride 108 mMol/L (98-107); Creatinine (Component) 0.6 mg/dL (0.6-1.3); Fibrinogen 428 mg/dL (175-375); Globulin 2.8 gm/dL (2.3-3.5); Glucose 108 mg/dL (74-106); INR 0.9 (0.9-1.3); Osmolality,Calculated 276 (275-295); Partial Thromboplastin Time 26.5 Seconds (22.0-36.0); Potassium 3.7 mMol/L (3.4-5.1); Prothrombin Time 10.3 Seconds (9.0-12.2); Sodium 139 mMol/L (136-145); Total Protein 5.9 gm/dL (5.7-8.2); Uric Acid 3.7 mg/dL (3.1-7.8); eGFR > 60 See Note
[2024-07-13 13:11] LABS: Collection Type, Urine Clean Catch
[2024-07-13 13:21] LABS: Amorphous Crystals,Urine Present (Absent); Bacteria,Urine Rare; Bilirubin,Urine Negative (Negative); Blood,Urine Negative (Negative); Clarity,Urine Turbid (Clear/Hazy); Color,Urine Yellow (Lt Yel-Yel); Glucose, Urine Negative (Negative); Ketones,Urine Negative (Negative); Leukocyte Esterase,Urine Positive (Negative); Nitrite,Urine Negative (Negative); Protein,Urine 1+ (Neg - Trace); RBC,Urine 31 /hpf (0-3); Specific Gravity,Urine 1.017 (1.001-1.035); Squamous Epithelial Cell,Urine 9 /hpf (0-5); Urobilinogen,Urine Negative mg/dL (0.0-1.0); WBC,Urine 12 /hpf (0-5)
[2024-07-13 13:45] LABS: Creatinine,Random Urine 122 mg/dL (30-125); Protein Total, Random Urine 101 mg/dL (1-14)
--- NOTE | 2024-07-13 15:11 | PC.NURSE ---
Severe range BP noted on strip at 1409. RN was at lunch relieved by Adenike VERMA. I notified Dr. Paiz about the elevated BP, informed her that the recheck was 140's/80's. Per Dr. Paiz patient can be discharged and should follow up with Dr. Higuera at her next scheduled appointment.
== END 2024-07-13 14:55 | disposition home or self-care (01) ==
PROVIDERS: Admitting Provider Obstetrics & Gynecology; Visit Provider Obstetrics & Gynecology
DX: Z34.90 Encounter for supervision of normal pregnancy, unspecified, unspecified trimester (principal); Z3A.00 Weeks of gestation of pregnancy not specified
CPT/HCPCS: 36415; 59899; 80053; 81001; 82570; 84156; 84550; 85025; 85384; 85610; 85730

== ENCOUNTER 2024-07-18 11:02 | Outpatient (AMB) | payer MEDICAID, SELFPAY ==
[2024-07-18 11:07] VITALS: BP 130/84; PULSE 84; RESP 18; TEMP 36.2; O2SAT 98
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
== END 2024-07-18 11:34 | disposition home or self-care (01) ==
LOC: HODSOBC 11:02
PROVIDERS: Supervising Provider Obstetrics & Gynecology; Visit Provider Obstetrics & Gynecology
DX: O09.523 Supervision of elderly multigravida, third trimester (principal); O09.893 Supervision of other high risk pregnancies, third trimester; Z3A.37 37 weeks gestation of pregnancy; O24.113 Pre-existing type 2 diabetes mellitus, in pregnancy, third trimester; E11.65 Type 2 diabetes mellitus with hyperglycemia; Z79.4 Long term (current) use of insulin; Z91.148 Patient's other noncompliance with medication regimen for other reason; Z91.199 Patient's noncompliance with other medical treatment and regimen due to unspecified reason
CPT/HCPCS: 99213; G0463

== ENCOUNTER 2024-07-18 11:49 | Outpatient (RCR) | payer MEDICAID, SELFPAY ==
--- NOTE | 2024-06-27 12:36 | XR_ITS ---
Examination: Biophysical profile, ultrasound Date and time of exam: June 27, 2024 1323 hours INDICATIONS: Diagnosis gestational diabetes Technique: Multiple transabdominal sonographic images of the pelvis abdomen obtained. Attention is directed to the breathing movement, gross body movement, amniotic fluid volume and tone. Findings: Amniotic fluid index 13.5 cm Total biophysical profile is 8 of 8. breathing movement is 2. Gross body movement is 2. tone is 2. Qualitative amniotic fluid volume is 2 Impression: Biophysical profile is 8 of 8.
[2024-06-27 13:33] VITALS: BP 103/60; PULSE 83; RESP 16; TEMP 36.8
[2024-07-07 13:21] VITALS: BP 127/76; PULSE 83; RESP 16; TEMP 36.7
--- NOTE | 2024-07-07 13:37 | XR_ITS ---
Examination: Biophysical profile, ultrasound Date and time of exam: July 07, 2024 1343 hours INDICATIONS: Gestational diabetes Technique: Multiple transabdominal sonographic images of the pelvis abdomen obtained. Attention is directed to the breathing movement, gross body movement, amniotic fluid volume and tone. Findings: Amniotic fluid index 17.4 cm Total biophysical profile is 8 of 8. breathing movement is 2. Gross body movement is 2. tone is 2. Qualitative amniotic fluid volume is 2 Impression: Biophysical profile is 8 of 8.
--- NOTE | 2024-07-18 11:53 | XR_ITS ---
Examination: Biophysical profile, ultrasound Date and time of exam: July 18, 2024 1201 hours INDICATIONS: Diagnosis gestational diabetes Technique: Multiple transabdominal sonographic images of the pelvis abdomen obtained. Attention is directed to the breathing movement, gross body movement, amniotic fluid volume and tone. Findings: Amniotic fluid index 12.5 cm Total biophysical profile is 8 of 8. breathing movement is 2. Gross body movement is 2. tone is 2. Qualitative amniotic fluid volume is 2 Impression: Biophysical profile is 8 of 8.
[2024-07-18 12:27] VITALS: BP 125/68; PULSE 73; RESP 16; TEMP 36.7
== END 2024-07-18 23:59 | disposition home or self-care (01) ==
LOC: S4S1 11:49
PROVIDERS: Referring Provider Obstetrics & Gynecology; Visit Provider Obstetrics & Gynecology
DX: O09.93 Supervision of high risk pregnancy, unspecified, third trimester (principal); O24.113 Pre-existing type 2 diabetes mellitus, in pregnancy, third trimester; E11.65 Type 2 diabetes mellitus with hyperglycemia; Z3A.38 38 weeks gestation of pregnancy; Z79.84 Long term (current) use of oral hypoglycemic drugs
CPT/HCPCS: 59025; 76819

== ENCOUNTER 2024-07-20 17:00 | Inpatient (IN) | payer MEDICAID, SELFPAY ==
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
[2024-07-20] VITALS (75 sets, daily range): BP systolic 138–188; BP diastolic 71–101; PULSE 68–90; RESP 16–19; TEMP 36.6–36.8; O2SAT 90–100; BMI 40.1
[2024-07-20 18:20] LABS: Basophils # (Auto) 0.1 Thou/mm3 (0.0-0.2); Basophils % (Auto) 1 % (0-2.5); Eosinophils # (Auto) 0.1 Thou/mm3 (0.0-0.5); Eosinophils % (Auto) 1 % (0-10); Hematocrit 30.7 % (36.0-46.0); Hemoglobin 10.2 g/dL (12.0-16.0); Immature Granulocytes % (Auto) 0 % (0-0); Immature Granulocytes Auto 0.04 Thou/mm3 (0.00-0.00); Lymphocytes # (Auto) 2.3 Thou/mm3 (1.0-4.8); Lymphocytes % (Auto) 25 % (10-50); Mean Corpuscular HGB Conc 33.2 g/dl (31.0-37.0); Mean Corpuscular Hemoglobin 25.6 pg (25.0-35.0); Mean Corpuscular Volume 77 fL (80-100); Monocytes # (Auto) 0.4 Thou/mm3 (0.0-0.8); Monocytes % (Auto) 5 % (0-12); Neutrophils # (Auto) 6.2 Thou/mm3 (1.8-7.7); Neutrophils % (Auto) 68 % (37-80); Nucleated Red Blood Cell % 0 /100 WBC (0); Platelet Count 225 Thou/mm3 (140-440); RDW Standard Deviation 39.2 fL (36.4-46.3); Red Blood Count 3.98 Miln/mm3 (4.00-5.20); White Blood Count 9.1 Thou/mm3 (3.6-11.0)
--- NOTE | 2024-07-20 18:27 | XR_ITS ---
Examination: age limited TECHNIQUE: Limited transabdominal sonographic images pelvis Date and time: July 20, 2024 1859 hours INDICATIONS: Type 2 diabetes, and known weight and presentation. FINDINGS: Viable intrauterine gestation cephalic presentation. spine maternal right. Cardiac motion 166 BPM. Estimated weight 3194 g. Estimated age 37 weeks 3 days IMPRESSION: Viable intrauterine gestation cephalic presentation
[2024-07-20 18:51] LABS: Fibrinogen 455 mg/dL (175-375); INR 0.9 (0.9-1.3); Partial Thromboplastin Time 25.9 Seconds (22.0-36.0); Prothrombin Time 10.4 Seconds (9.0-12.2)
[2024-07-20 18:58] LABS: Alanine Aminotransferase 12 U/L (10-49); Albumin, Serum 3.3 gm/dL (3.5-5.0); Albumin/Globulin Ratio 1.1 (1.2-2.2); Alkaline Phosphatase 298 U/L (46-116); Anion Gap 11 (7-16); Aspartate Amino Transferase 28 U/L (0-34); BUN/Creatinine Ratio 13 Ratio (12-20); Bilirubin,Total 0.4 mg/dL (0.3-1.2); Blood Urea Nitrogen 8 mg/dL (9-23); Calcium (Corrected) 8.6 mg/dL (8.5-10.1); Carbon Dioxide 21.5 mMol/L (20.0-31.0); Chloride 106 mMol/L (98-107); Creatinine (Component) 0.6 mg/dL (0.6-1.3); Estimated Creatinine Clearance 128.1 mL/min (>60); Globulin 2.9 gm/dL (2.3-3.5); Glucose 188 mg/dL (74-106); Osmolality,Calculated 278 (275-295); Potassium 3.5 mMol/L (3.4-5.1); Sodium 138 mMol/L (136-145); Total Protein 6.2 gm/dL (5.7-8.2); Uric Acid 3.4 mg/dL (3.1-7.8); eGFR > 60 See Note
[2024-07-20 19:08] LABS: Syphilis Nonreactive (Nonreactive)
[2024-07-20] MEDS: Magnesium Sulfate 4 GM Ivpb 4 GM/50 ML BAG IV (20:14)
[2024-07-20] MEDS: LABETALOL INJ 5 MG/ML VIAL 20 ML 20 MG IVP (20:16)
[2024-07-20] MEDS: RINGERS LACTATED 1000 ML 1,000 ML 100 ML IV (20:30)
[2024-07-20] MEDS: MAGNESIUM SULF 20 GM IVPB 20 GM/500 ML BAG IV (20:45)
[2024-07-20] MEDS: INSULIN GLARGINE (Lantus) 5 UNIT/0.05 ML (PER 5 UNITS) 15 UNIT SC (20:59)
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
[2024-07-20] MEDS: DINOPROSTONE 10 MG VAG.SUPP VAGINAL (21:22)
[2024-07-20 21:42] LABS: Collection Type, Urine Clean Catch
[2024-07-20 22:06] LABS: Bilirubin,Urine Negative (Negative); Blood,Urine 2+ (Negative); Clarity,Urine Clear (Clear/Hazy); Color,Urine Lt-Yellow (Lt Yel-Yel); Glucose, Urine Negative (Negative); Ketones,Urine Negative (Negative); Leukocyte Esterase,Urine Negative (Negative); Nitrite,Urine Negative (Negative); PH,Urine 6.5 (5.0-7.0); Protein,Urine 1+ (Neg - Trace); RBC,Urine 45 /hpf (0-3); Specific Gravity,Urine 1.017 (1.001-1.035); Squamous Epithelial Cell,Urine 1 /hpf (0-5); Urobilinogen,Urine Negative mg/dL (0.0-1.0); WBC,Urine 6 /hpf (0-5)
[2024-07-20 23:00] LABS: Magnesium 3.3 mg/dL (1.6-2.6)
[2024-07-20 23:03] LABS: Amphetamine/Metham Scrn,Ur OB Negative (Negative); Benzoylecgonine Screen, Ur OB Negative (Negative); Creatinine,Random Urine 74 mg/dL (30-125); Opiate Screen,Urine OB Negative (Negative); Protein Total, Random Urine 157 mg/dL (1-14); THC Screen,Urine OB Negative (Negative)
[2024-07-21] VITALS (296 sets, daily range): BP systolic 108–185; BP diastolic 55–104; PULSE 70–93; RESP 18–20; TEMP 36.3–36.9; O2SAT 85–99; BMI 40.1
[2024-07-21] MEDS: ACETAMINOPHEN 500 MG TABLET 1000 MG PO ×2 (02:37→09:10)
[2024-07-21 03:19] LABS: Magnesium 3.9 mg/dL (1.6-2.6)
[2024-07-21] MEDS: RINGERS LACTATED 1000 ML 1,000 ML 100 ML IV ×3 (03:27→21:50)
[2024-07-21] MEDS: MAGNESIUM SULF 20 GM IVPB 20 GM/500 ML BAG IV ×2 (07:24→18:31)
[2024-07-21 09:19] LABS: Magnesium 4.4 mg/dL (1.6-2.6)
[2024-07-21] MEDS: MISOPROSTOL 50 mCg TABLET PO ×3 (11:36→22:27)
[2024-07-21] MEDS: INSULIN LISPRO (AdmeLOG) 1 UNIT/0.01 ML UNIT 5 UNIT SC (11:58)
[2024-07-21] MEDS: LABETALOL 100 MG TABLET 400 MG PO ×2 (12:47→21:50)
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
[2024-07-21 15:14] LABS: Magnesium 4.6 mg/dL (1.6-2.6)
--- NOTE | 2024-07-21 17:00 | PD.LDPN ---
Documentation for date of: 07/21/24 OB Labor Progress Note Pelvic Exam Dilation (cm): 1 Effacement (%): 50 station: -3 Amniotic membrane status: Intact Contractions Monitor mode: External Contraction frequency: 2-4 Contraction intensity: Mild Status status: Category l Assessment and Plan Comments: Intrapartum Note Patient received epidural. Cat I FHRT BP's mostly 150's systolic SCE: 50/-3, cook cervical murray balloon placed with 40cc NS intra-uterine only, tolerated by patient Plan to continue cytotec 50mcg cytotec PO Q4hr Continue labetalol 400mg PO BID Add Nifedipine 30mg XL PO QD Continue to closely monitor Roxann Dalton MD
[2024-07-21] MEDS: NIFEdipine XL 30 MG TABCR PO (17:31)
[2024-07-21 22:45] LABS: Basophils % (Auto) 0 % (0-2.5); Eosinophils # (Auto) 0.1 Thou/mm3 (0.0-0.5); Eosinophils % (Auto) 1 % (0-10); Hematocrit 29.6 % (36.0-46.0); Hemoglobin 10.2 g/dL (12.0-16.0); Immature Granulocytes % (Auto) 0 % (0-0); Immature Granulocytes Auto 0.05 Thou/mm3 (0.00-0.00); Lymphocytes # (Auto) 2.2 Thou/mm3 (1.0-4.8); Lymphocytes % (Auto) 18 % (10-50); Mean Corpuscular HGB Conc 34.5 g/dl (31.0-37.0); Mean Corpuscular Hemoglobin 25.5 pg (25.0-35.0); Mean Corpuscular Volume 74 fL (80-100); Monocytes # (Auto) 0.5 Thou/mm3 (0.0-0.8); Monocytes % (Auto) 5 % (0-12); Neutrophils # (Auto) 8.9 Thou/mm3 (1.8-7.7); Neutrophils % (Auto) 76 % (37-80); Nucleated Red Blood Cell % 0 /100 WBC (0); Platelet Count 203 Thou/mm3 (140-440); RDW Standard Deviation 38.6 fL (36.4-46.3); White Blood Count 11.8 Thou/mm3 (3.6-11.0)
[2024-07-21 23:15] LABS: Alanine Aminotransferase 11 U/L (10-49); Albumin, Serum 3.1 gm/dL (3.5-5.0); Albumin/Globulin Ratio 1.1 (1.2-2.2); Alkaline Phosphatase 286 U/L (46-116); Anion Gap 10 (7-16); Aspartate Amino Transferase 27 U/L (0-34); BUN/Creatinine Ratio 12 Ratio (12-20); Bilirubin,Total 0.4 mg/dL (0.3-1.2); Blood Urea Nitrogen 7 mg/dL (9-23); Calcium (Corrected) 7.3 mg/dL (8.5-10.1); Carbon Dioxide 19.7 mMol/L (20.0-31.0); Chloride 106 mMol/L (98-107); Creatinine (Component) 0.6 mg/dL (0.6-1.3); Estimated Creatinine Clearance 128.1 mL/min (>60); Globulin 2.8 gm/dL (2.3-3.5); Glucose 93 mg/dL (74-106); Osmolality,Calculated 269 (275-295); Potassium 3.9 mMol/L (3.4-5.1); Sodium 136 mMol/L (136-145); Total Protein 5.9 gm/dL (5.7-8.2); eGFR > 60 See Note
[2024-07-21 23:17] LABS: Calcium 6.6 mg/dL (8.3-10.6)
[2024-07-22] VITALS (426 sets, daily range): BP systolic 101–173; BP diastolic 52–100; PULSE 72–91; RESP 19; TEMP 36.6–37.4; O2SAT 91–98
[2024-07-22] MEDS: MISOPROSTOL 50 mCg TABLET PO (04:25)
[2024-07-22] MEDS: MAGNESIUM SULF 20 GM IVPB 20 GM/500 ML BAG IV ×2 (04:30→21:51)
[2024-07-22] MEDS: RINGERS LACTATED 1000 ML 1,000 ML 100 ML IV ×2 (07:44→23:05)
[2024-07-22] MEDS: Ampicillin Inj 2,000 MG in SODIUM CHLORIDE 0.9% (POP) 100 ML 200 MG IV (08:49)
[2024-07-22] MEDS: LABETALOL 100 MG TABLET 400 MG PO ×2 (08:49→20:57)
[2024-07-22] MEDS: NIFEdipine XL 30 MG TABCR PO (08:51)
[2024-07-22 09:26] LABS: Basophils # (Auto) 0.1 Thou/mm3 (0.0-0.2); Basophils % (Auto) 0 % (0-2.5); Eosinophils # (Auto) 0.1 Thou/mm3 (0.0-0.5); Eosinophils % (Auto) 1 % (0-10); Hematocrit 30.4 % (36.0-46.0); Hemoglobin 10.5 g/dL (12.0-16.0); Immature Granulocytes % (Auto) 0 % (0-0); Immature Granulocytes Auto 0.04 Thou/mm3 (0.00-0.00); Lymphocytes % (Auto) 16 % (10-50); Mean Corpuscular HGB Conc 34.5 g/dl (31.0-37.0); Mean Corpuscular Hemoglobin 25.9 pg (25.0-35.0); Mean Corpuscular Volume 75 fL (80-100); Monocytes # (Auto) 0.5 Thou/mm3 (0.0-0.8); Monocytes % (Auto) 4 % (0-12); Neutrophils # (Auto) 9.7 Thou/mm3 (1.8-7.7); Neutrophils % (Auto) 79 % (37-80); Nucleated Red Blood Cell % 0 /100 WBC (0); Platelet Count 217 Thou/mm3 (140-440); RDW Standard Deviation 39.1 fL (36.4-46.3); Red Blood Count 4.06 Miln/mm3 (4.00-5.20); White Blood Count 12.4 Thou/mm3 (3.6-11.0)
[2024-07-22 10:01] LABS: Alanine Aminotransferase 12 U/L (10-49); Albumin/Globulin Ratio 1.2 (1.2-2.2); Alkaline Phosphatase 293 U/L (46-116); Anion Gap 11 (7-16); Aspartate Amino Transferase 28 U/L (0-34); BUN/Creatinine Ratio 12 Ratio (12-20); Bilirubin,Total 0.4 mg/dL (0.3-1.2); Blood Urea Nitrogen 7 mg/dL (9-23); Calcium (Corrected) 7.3 mg/dL (8.5-10.1); Carbon Dioxide 19.7 mMol/L (20.0-31.0); Chloride 105 mMol/L (98-107); Creatinine (Component) 0.6 mg/dL (0.6-1.3); Estimated Creatinine Clearance 128.1 mL/min (>60); Globulin 2.5 gm/dL (2.3-3.5); Glucose 114 mg/dL (74-106); Magnesium 4.8 mg/dL (1.6-2.6); Osmolality,Calculated 270 (275-295); Sodium 136 mMol/L (136-145); Total Protein 5.5 gm/dL (5.7-8.2); eGFR > 60 See Note
[2024-07-22 10:20] LABS: Calcium 6.5 mg/dL (8.3-10.6)
--- NOTE | 2024-07-22 10:35 | ESPR_ITS ---
Documentation for date of: 07/22/24 OB Labor Progress Note Pelvic Exam Dilation (cm): 4 Effacement (%): 70 station: -1 Amniotic membrane status: Ruptured Contractions Monitor mode: External Contraction frequency: q6-8min Contraction pattern: Coupling Contraction intensity: Moderate Status status: Category l Assessment and Plan Comments: Intrapartum Note Hetal is a 33yo with SIUP at 37&5wk undergoing scheduled IOL for uncontrolled T2DM (on insulin) in . Upon admission she received new dx of pre-eclampsia with severe features based on severe range bp's requiring IV labetalol x1 and IV MgSO4 was initiated. Initial SCE was cl/thick/high and cervidil was placed overnight and removed after 12hr at which point her SCE was cl/50/-3 and she was started on oral cytotec. Alberto cervical balloon was placed at 1cm dilation which came out very early this morning and she received 1 more dose of cytotec after that. She had SROM, clear around 0600. RN placed FSE and IUPC (since Breana wasn't working well) around 0930. At that time SCE was 4/70/-1. Since starting labetalol 400mg PO BID and Nifedipine 30mg XL PO QD, BP's have been mostly improved- no recurrent severe range bp's. On admission labs only significant for mild anemia (Hgb 10.2), plt 225. Serum creat 0.6, LFTs wnl. Urine p:c elevated at 2. After starting IV MgSO4, hyp ocalcemia noted but no derangement of K or Na. She has no s/sx of worsening pre-E at this time. She endorsed a headache this morning, but RN went to get tylenol for her and when she returned the patient stated headache was resolved. Since starting clear liquid diet, insulin was stopped and her q2 fingerstick glucose checks have been in the 90's. She has had Cat I-II FHRT for min-mod opal, +accels, no late or variable decels. Plan: -Continue IV MgSO4 1g/hr with Mg and neuro checks per protocol (decrease from 2g/hr in the setting of hypocalcemia) -Labetalol 400mg PO BID with Nifedipine 30mg XL PO QD. -Prn IV labetalol for recurrent severe range bp's -Clear liquid diet. Continue fingerstick glucose checks q2hr. -CEFM -GBS status: unknown. Ampicillin was initiated at 4cm dilation. -Will continue to closely monitor -Anticipate -Safe to proceed Roxann Dalton MD
[2024-07-22] MEDS: OXYTOCIN in NS 30 units 30 UNIT/500 ML BAG IV (10:43)
[2024-07-22] MEDS: Ampicillin Inj 1,000 MG in SODIUM CHLORIDE 0.9% (Popper) 50 ML 50 MG IV ×3 (13:02→20:57)
[2024-07-22 14:57] LABS: Magnesium 4.3 mg/dL (1.6-2.6)
--- NOTE | 2024-07-22 16:54 | PD.LDPN ---
Documentation for date of: 07/22/24 OB Labor Progress Note Pelvic Exam Dilation (cm): 5 Effacement (%): 90 station: -2 Amniotic membrane status: Ruptured Contractions Monitor mode: Internal Contraction frequency: 2-3 Contraction pattern: Coupling Contraction intensity: Moderate Status status: Category ll Assessment and Plan Comments: Intrapartum Note Patient had epidural re-placed and is more comfortable now. IV pitocin at 13mu. Patient has no sx of worsening pre-E (no MONDRAGON, vision changes, RUQ pain). Also no sx of hypocalcemia. IV MgSO4 was turned down to 1g/hr this morning with no issues. BP's normotensive to mild range Blood glucose levels in 90's SCE: 5/80/-2 Cat I-II FHRT for min-mod opal, +accels, no recurrent decels Ctx q3-5min Plan: -Continue IV MgSO4 at 1g/hr, routine Mg and neuro checks -Continue IV pitocin to effect adequate MVUs -CEFM -Continue labetalol 400mg PO BID and nifedipine 30mg XL PO QD -Continue q2 fingerstick glucose -Continue to closely monitor -Daily CBC, CMP -Safe to proceed Roxann Dalton MD
--- NOTE | 2024-07-22 20:00 | PD.LDPN ---
Documentation for date of: 07/22/24 OB Labor Progress Note Pain Control Comments: PHONE CALL FROM NURSE FOR DIET ORDER. PATIENT IN LABOR 7 CM. ADMITTED FOR GDM AND PIH. CURRENTLY ON OXYTOCIN 13 MIU, LABETALOL & MGSO4. FHR WITH DECREASED VARIBILITY WHILE ON MAGSO4 Pelvic Exam Dilation (cm): 7.5 Effacement (%): 90 station: -1 Amniotic membrane status: Ruptured Contractions Monitor mode: Internal Contraction frequency: 1-5 Contraction pattern: Coupling Contraction intensity: Moderate Status status: Category ll Assessment and Plan Comments: PER DR. HINSON
--- NOTE | 2024-07-22 20:06 | PD.LDPN ---
Documentation for date of: 07/22/24 OB Labor Progress Note Pelvic Exam Dilation (cm): 7.5 Effacement (%): 90 station: -1 Amniotic membrane status: Ruptured Contractions Monitor mode: Internal Contraction frequency: 1-5 Contraction pattern: Coupling Contraction intensity: Moderate Status status: Category ll
[2024-07-22] MEDS: INSULIN GLARGINE (Lantus) 5 UNIT/0.05 ML (PER 5 UNITS) 15 UNIT SC (20:56)
[2024-07-22 21:48] LABS: Magnesium 4.4 mg/dL (1.6-2.6)
--- NOTE | 2024-07-22 23:47 | PD.LDPN ---
Documentation for date of: 07/22/24 OB Labor Progress Note Pelvic Exam Dilation (cm): 8 Effacement (%): 100 station: -1 Amniotic membrane status: Ruptured Contractions Monitor mode: Internal Contraction frequency: 1-4 Contraction pattern: Coupling Contraction intensity: Moderate Status status: Category ll Assessment and Plan Comments: Decision for section I was called by RN regarding recurrent early vs late FHR decels in the setting of minimal variability. I reviewed the tracing and they appear more consistent with lates. RN has attempted all of the resuscitative measures without effect, so I asked that the team be called in to proceed with PLTCS. I immediately went to bedside and counseled the patient with assistance of the conference interpreter line. Patient is amenable to proceeding. No LAND DEGRADATION ANALYST is available for the procedure, but because of the indication for the section and need for expeditiousness, we will be proceeding without LAND DEGRADATION ANALYST. -Counseled/consented re: section. Discussed all r/b/a to include: bleeding (possible need for blood transfusion), infection (subcutaneous, deeper layers or uterine with possible need for prolonged admission or re-admission for IV antibiotics, I&D with wound packing, etc), injury to nearby structures such as bladder, bowel, ureters, blood vessels, nerves with possible need for re-operation, pain, injury to baby, hysterectomy, DVT/PE, . Answered all questions to patient's apparent satisfaction. -IV abx ppx: ancef 3g IV x1 and azithromycin 500mg IV x1 -Nursing and anesthesia team aware of plan for section. Will proceed to OR [facility]. Roxann Dalton MD
[2024-07-22] MEDS: ceFAZolin/D5W 2 GM IV 2 GM/100 ML BAG IV (23:53)
[2024-07-22] MEDS: FAMOTIDINE INJ 10 MG/ML VIAL 2 ML 20 MG IV (23:54)
[2024-07-22] MEDS: ceFAZolin/D5W 1 GM IVPB 1 GM/50 ML BAG IV (23:54)
[2024-07-23] VITALS (20 sets, daily range): BP systolic 99–156; BP diastolic 28–94; PULSE 77–87; RESP 13–24; TEMP 36.6–37.1; O2SAT 94–97
[2024-07-23] MEDS: METOCLOPRAMIDE INJ 5 MG/ML VIAL 2 ML 10 MG IVP (00:04)
[2024-07-23] MEDS: AZITHROMYCIN INJ 500 MG in SODIUM CHLORIDE 0.9% 250 ML 250 ML 250 MG IV (00:10)
[2024-07-23] MEDS: MISOPROSTOL 200 mCg TABLET 800 MCG PR (01:50)
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
[2024-07-23] MEDS: DIPHENOXYLATE/ATROP SULF 1 TAB PO (02:15)
[2024-07-23] MEDS: KETOROLAC INJ 30 MG/ML VIAL IVP ×4 (03:20→22:04)
[2024-07-23] MEDS: OXYTOCIN in NS 20 units 20 UNIT/1,000 ML BAG 125 UNIT IV ×2 (03:22→13:22)
[2024-07-23 03:31] LABS: Magnesium 3.9 mg/dL (1.6-2.6)
[2024-07-23] MEDS: CALCIUM CARBONATE 600 MG TABLET PO ×2 (08:25→22:05)
[2024-07-23] MEDS: DOCUSATE SOD 100 MG CAPSULE PO (08:25)
[2024-07-23 09:26] LABS: Basophils # (Auto) 0.1 Thou/mm3 (0.0-0.2); Basophils % (Auto) 0 % (0-2.5); Eosinophils % (Auto) 0 % (0-10); Hematocrit 27.8 % (36.0-46.0); Hemoglobin 9.5 g/dL (12.0-16.0); Immature Granulocytes % (Auto) 1 % (0-0); Lymphocytes # (Auto) 2.7 Thou/mm3 (1.0-4.8); Lymphocytes % (Auto) 10 % (10-50); Mean Corpuscular HGB Conc 34.2 g/dl (31.0-37.0); Mean Corpuscular Hemoglobin 26.3 pg (25.0-35.0); Mean Corpuscular Volume 77 fL (80-100); Monocytes # (Auto) 1.1 Thou/mm3 (0.0-0.8); Monocytes % (Auto) 4 % (0-12); Neutrophils # (Auto) 22.6 Thou/mm3 (1.8-7.7); Neutrophils % (Auto) 85 % (37-80); Nucleated Red Blood Cell % 0 /100 WBC (0); Platelet Count 199 Thou/mm3 (140-440); RDW Standard Deviation 40.5 fL (36.4-46.3); Red Blood Count 3.61 Miln/mm3 (4.00-5.20); White Blood Count 26.8 Thou/mm3 (3.6-11.0)
[2024-07-23] MEDS: AMPICILLIN/SULBAC INJ 3 GM in SODIUM CHLORIDE 0.9% (POP) 100 ML IV ×3 (10:25→22:33)
[2024-07-23] MEDS: Gentamicin 320 MG in SODIUM CHLORIDE 0.9% 100 ML 216 MG IV (11:26)
--- NOTE | 2024-07-23 11:30 | PC.NURSE ---
Dr. Singer made aware of of critical calcium level, orders followed
[2024-07-23 11:33] LABS: Alanine Aminotransferase 7 U/L (10-49); Albumin, Serum 2.8 gm/dL (3.5-5.0); Albumin/Globulin Ratio 1.2 (1.2-2.2); Alkaline Phosphatase 236 U/L (46-116); Anion Gap 11 (7-16); Aspartate Amino Transferase 24 U/L (0-34); BUN/Creatinine Ratio 15 Ratio (12-20); Bilirubin,Total 0.4 mg/dL (0.3-1.2); Blood Urea Nitrogen 12 mg/dL (9-23); Calcium (Corrected) 7.6 mg/dL (8.5-10.1); Carbon Dioxide 18.9 mMol/L (20.0-31.0); Chloride 104 mMol/L (98-107); Creatinine (Component) 0.8 mg/dL (0.6-1.3); Estimated Creatinine Clearance 96.1 mL/min (>60); Globulin 2.4 gm/dL (2.3-3.5); Glucose 187 mg/dL (74-106); Osmolality,Calculated 272 (275-295); Potassium 4.2 mMol/L (3.4-5.1); Sodium 134 mMol/L (136-145); Total Protein 5.2 gm/dL (5.7-8.2); eGFR > 60 See Note
[2024-07-23 11:35] LABS: Calcium 6.6 mg/dL (8.3-10.6)
[2024-07-23] MEDS: INSULIN LISPRO (AdmeLOG) 1 UNIT/0.01 ML UNIT 5 UNIT SC (13:53)
[2024-07-23 16:09] LABS: Magnesium 3.5 mg/dL (1.6-2.6)
[2024-07-23] MEDS: INSULIN GLARGINE (Lantus) 5 UNIT/0.05 ML (PER 5 UNITS) 15 UNIT SC (22:01)
[2024-07-23 22:45] LABS: Gentamicin, Random 1.5 mcg/mL (4.0-10.0)
[2024-07-24] MEDS: SIMETHICONE 80 MG CHEW PO ×2 (01:11→07:22)
[2024-07-24] MEDS: HYDROcodone/APAP 5/325 TABLET 1 TAB PO (02:35)
[2024-07-24] MEDS: AMPICILLIN/SULBAC INJ 3 GM in SODIUM CHLORIDE 0.9% (POP) 100 ML IV ×4 (04:27→22:59)
[2024-07-24 04:32] VITALS: BP 115/67; PULSE 83; RESP 22; TEMP 36.9; O2SAT 95
[2024-07-24] MEDS: IBUPROFEN TAB 400 MG TABLET 800 MG PO ×2 (05:06→18:13)
[2024-07-24 05:35] LABS: Basophils # (Auto) 0.1 Thou/mm3 (0.0-0.2); Basophils % (Auto) 0 % (0-2.5); Eosinophils # (Auto) 0.1 Thou/mm3 (0.0-0.5); Eosinophils % (Auto) 0 % (0-10); Hematocrit 24.8 % (36.0-46.0); Immature Granulocytes % (Auto) 1 % (0-0); Immature Granulocytes Auto 0.15 Thou/mm3 (0.00-0.00); Lymphocytes # (Auto) 2.1 Thou/mm3 (1.0-4.8); Lymphocytes % (Auto) 11 % (10-50); Mean Corpuscular HGB Conc 33.9 g/dl (31.0-37.0); Mean Corpuscular Hemoglobin 25.5 pg (25.0-35.0); Mean Corpuscular Volume 75 fL (80-100); Monocytes % (Auto) 5 % (0-12); Neutrophils % (Auto) 82 % (37-80); Nucleated Red Blood Cell % 0 /100 WBC (0); Platelet Count 216 Thou/mm3 (140-440); RDW Standard Deviation 40.2 fL (36.4-46.3); White Blood Count 19.4 Thou/mm3 (3.6-11.0)
[2024-07-24 05:38] LABS: Hemoglobin 8.4 g/dL (12.0-16.0)
[2024-07-24 06:02] LABS: Alanine Aminotransferase 9 U/L (10-49); Albumin, Serum 2.8 gm/dL (3.5-5.0); Albumin/Globulin Ratio 1.2 (1.2-2.2); Alkaline Phosphatase 203 U/L (46-116); Anion Gap 10 (7-16); Aspartate Amino Transferase 32 U/L (0-34); BUN/Creatinine Ratio 17 Ratio (12-20); Bilirubin,Total 0.3 mg/dL (0.3-1.2); Blood Urea Nitrogen 10 mg/dL (9-23); Calcium 7.2 mg/dL (8.3-10.6); Calcium (Corrected) 8.2 mg/dL (8.5-10.1); Carbon Dioxide 22.1 mMol/L (20.0-31.0); Chloride 103 mMol/L (98-107); Creatinine (Component) 0.6 mg/dL (0.6-1.3); Estimated Creatinine Clearance 128.1 mL/min (>60); Globulin 2.4 gm/dL (2.3-3.5); Glucose 83 mg/dL (74-106); Osmolality,Calculated 268 (275-295); Potassium 3.9 mMol/L (3.4-5.1); Sodium 135 mMol/L (136-145); Total Protein 5.2 gm/dL (5.7-8.2); eGFR > 60 See Note
[2024-07-24] MEDS: HYDROcodone/APAP 5/325 TABLET 2 TAB PO ×2 (07:20→14:08)
[2024-07-24 07:50] VITALS: BP 122/77; PULSE 87; RESP 19; TEMP 36.8; O2SAT 98
--- NOTE | 2024-07-24 08:12 | PD.LDPPPRG ---
Subjective Subjective Interval history: Postop day #1. Patient denies any problem or complaint. She is voiding and ambulating and tolerating an ADA diet with normal blood sugars. Her blood pressures have been normal so we discontinued the labetalol and nifedipine. Patient states that she was not on any blood pressure medication or insulin prior to conception. She denies any headache, change in vision, or right upper quadrant pain.. She denies any chest pain, palpitations, shortness of breath or lower extremity pain. Unasyn and Gentamycin started for WBC 27.6. However she has been afebrile and she has not been tachycardic. Exam Vital Signs Temp Pulse Resp BP Pulse Ox O2 Del Method 98.4 F 83 22 H 115/67 95 Room Air 07/24/24 04:32 07/24/24 04:32 07/24/24 04:32 07/24/24 04:32 07/24/24 04:32 07/24/24 04:32 Routine Respiratory Exam Comments: Clear to auscultation bilaterally Routine Cardiovascular Exam Comments: Regular rate and rhythm Routine Abdominal Exam Comments: Dressing dry and intact. Nondistended. Routine Extremities Exam Comments: Nontender Objective Labs 07/24/24 05:00 07/24/24 05:00 Labs: Laboratory Results - last 24 hr 07/23/24 07/23/24 07/23/24 08:40 15:25 21:54 WBC 26.8 H D RBC 3.61 L Hgb 9.5 L Hct 27.8 L MCV 77 L MCH 26.3 MCHC 34.2 RDW Std Deviation 40.5 Plt Count 199 Neut % (Auto) 85 H Lymph % (Auto) 10 [place] % (Auto) 4 Eos % (Auto) 0 Baso % (Auto) 0 Neut # (Auto) 22.6 H Lymph # (Auto) 2.7 [place] # (Auto) 1.1 H Eos # (Auto) 0.0 Baso # (Auto) 0.1 Immature Gran # (Auto) 0.20 H Absolute Nucleated RBC 0.00 Immature Gran % 1 H Nucleated RBC % 0 Sodium 134 L Potassium 4.2 Chloride 104 Carbon Dioxide 18.9 L Anion Gap 11 BUN 12 Creatinine 0.8 Estim Creat Clear Calc 96.1 eGFR > 60 BUN/Creatinine Ratio 15 Glucose 187 H D Calculated Osmolality 272 L Calcium 6.6 L* Corrected Calcium 7.6 L Magnesium 4.0 H 3.5 H Total Bilirubin 0.4 AST 24 ALT 7 L Alkaline Phosphatase 236 H D Total Protein 5.2 L Albumin 2.8 L Globulin 2.4 Albumin/Globulin Ratio 1.2 Random Gentamicin 1.5 L 05/25/25 05:00 WBC 19.4 H D RBC 3.30 L Hgb 8.4 L Hct 24.8 L MCV 75 L MCH 25.5 MCHC 33.9 RDW Std Deviation 40.2 Plt Count 216 Neut % (Auto) 82 H Lymph % (Auto) 11 [place] % (Auto) 5 Eos % (Auto) 0 Baso % (Auto) 0 Neut # (Auto) 16.0 H Lymph # (Auto) 2.1 [place] # (Auto) 1.0 H Eos # (Auto) 0.1 Baso # (Auto) 0.1 Immature Gran # (Auto) 0.15 H Absolute Nucleated RBC 0.00 Immature Gran % 1 H Nucleated RBC % 0 Sodium 135 L Potassium 3.9 Chloride 103 Carbon Dioxide 22.1 Anion Gap 10 BUN 10 Creatinine 0.6 Estim Creat Clear Calc 128.1 eGFR > 60 BUN/Creatinine Ratio 17 Glucose 83 D Calculated Osmolality 268 L Calcium 7.2 L Corrected Calcium 8.2 L Magnesium Total Bilirubin 0.3 AST 32 ALT 9 L Alkaline Phosphatase 203 H D Total Protein 5.2 L Albumin 2.8 L Globulin 2.4 Albumin/Globulin Ratio 1.2 Random Gentamicin Assessment & Plan Problem List (1) delivery delivered: Status: Acute Assessment and plan: Postop day #1 Remove dressing, DC IV, bottlefeeding, encourage ambulation, and Lovenox for VTE prophylaxis Leukocytosis without clear evidence of infection started on empiric Unasyn and gentamicin repeat CBC tomorrow morning (2) intolerance to labor, delivered, current hospitalization: Status: Acute (3) Pre-eclampsia, severe, third trimester: Status: Acute Assessment and plan: Blood pressures have been normal postoperatively therefore we will hold labetalol and nifedipine for now PIH labs are within normal limits (4) Anemia affecting in third trimester: Status: Acute Assessment and plan: Anemia but hemodynamically stable Plan discharge home tomorrow with ferrous sulfate (5) Obesity affecting in third trimester: Status: Acute (6) Elderly multigravida in third trimester: Status: Acute (7) Poor compliance with medication: Status: Acute (8) Poorly controlled type 2 diabetes mellitus: Status: Acute Assessment and plan: Continue current insulin regimen upon discharge as blood sugars are well-controlled (9) Supervision of high risk , unspecified, third trimester: Status: Acute Time Spent With Patient Time: Total time spent is greater than 50% in coordination of care (as documented) at patient's floor/unit and/or counseling patient:
[2024-07-24] MEDS: CALCIUM CARBONATE 600 MG TABLET PO ×2 (09:18→21:15)
[2024-07-24] MEDS: ENOXAPARIN SOD INJ 40 MG/0.4 ML SYRINGE SC (10:24)
[2024-07-24] MEDS: Gentamicin 320 MG in SODIUM CHLORIDE 0.9% 100 ML 216 MG IV (11:00)
[2024-07-24 11:15] VITALS: BP 111/74; PULSE 83; RESP 17; TEMP 37; O2SAT 97
[2024-07-24 20:25] VITALS: BP 139/74; PULSE 85; RESP 20; TEMP 36.9; O2SAT 96
[2024-07-24] MEDS: INSULIN GLARGINE (Lantus) 5 UNIT/0.05 ML (PER 5 UNITS) 15 UNIT SC (21:16)
[2024-07-25 04:02] VITALS: BP 129/76; PULSE 84; RESP 19; TEMP 37.2; O2SAT 97
[2024-07-25] MEDS: HYDROcodone/APAP 5/325 TABLET 2 TAB PO ×2 (04:14→12:09)
[2024-07-25] MEDS: AMPICILLIN/SULBAC INJ 3 GM in SODIUM CHLORIDE 0.9% (POP) 100 ML IV (05:08)
[2024-07-25] MEDS: IBUPROFEN TAB 400 MG TABLET 800 MG PO (07:29)
[2024-07-25] MEDS: SIMETHICONE 80 MG CHEW PO (07:29)
--- NOTE | 2024-07-25 08:39 | PD.LDPPPRG ---
Subjective Subjective Interval history: Patient is a 33-year-old G2, P2 who is status post primary for category 2 IOL, history of poorly compliant and uncontrolled type II DM on insulin Patient is status post 24 hours of magnesium Patient doing well this morning. No acute complaints. Ambulating, tolerating p.o. and voiding without difficulty. HTN/Pre-Eclampsia screen: No chest pain, shortness of breath, headache, visual changes, epigastric or right upper quadrant pain. Breast-feeding, lochia diminishing. Bowel: Flatus+/ BM+ UOP: Adequate Exam Vital Signs Temp Pulse Resp BP Pulse Ox O2 Del Method 98.9 F 84 19 129/76 97 Room Air 07/25/24 04:02 07/25/24 04:02 07/25/24 04:02 07/25/24 04:02 07/25/24 04:02 07/25/24 04:02 Constitutional Constitutional: no acute distress Routine HEENT Exam Head: Present normocephalic and atraumatic Eye: Present EOMI and PERRL ENT: Present mucous membranes moist Routine Neck Exam Neck: Present supple and trachea midline Routine Respiratory Exam Respiratory: Present chest non-tender, lungs clear, normal breath sounds and no resp distress Routine Cardiovascular Exam Cardiovascular: Present RRR Routine Abdominal Exam Abdominal: Present soft and normoactive bowel sounds Routine Extremities Exam Extremities: Present full ROM Routine Skin Exam Skin: Present intact, dry and warm Routine Neurological Exam Neurological: Present alert, oriented X3 and CN II-XII intact Routine Psychiatric Exam Psychiatric: Present normal affect and normal thought process Objective Labs 07/24/24 05:00 07/24/24 05:00 Assessment & Plan Problem List (1) delivery delivered: Status: Acute Assessment and plan: PPD/POD#2 1. Continue routine care 2. Transition to PO meds. 3. Encourage to ambulate/ breast-feed 4. Anticipate discharge home today. (2) intolerance to labor, delivered, current hospitalization: Status: Acute (3) Pre-eclampsia, severe, third trimester: Status: Acute (4) Anemia affecting in third trimester: Status: Acute (5) Obesity affecting in third trimester: Status: Acute (6) Elderly multigravida in third trimester: Status: Acute (7) Poor compliance with medication: Status: Acute (8) Poorly controlled type 2 diabetes mellitus: Status: Acute (9) Supervision of high risk , unspecified, third trimester: Status: Acute Time Spent With Patient Time: Total time spent is greater than 50% in coordination of care (as documented) at patient's floor/unit and/or counseling patient:
--- NOTE | 2024-07-25 08:40 | ESDS_ITS ---
DS: Providers Provider Date of admission: 07/20/24 17:00 Primary care physician: Jim Sin MD Admitting Provider: Roxann Dalton MD Attending Provider on Admission: Moe Singer MD Consults: 07/20/24 17:56 Referral Registered Dietitian Routine Comment: 07/23/24 01:57 Referral Routine Comment: Attending Provider on DC: Jim Sin MD Discharging Provider: Jim Sin MD DS: Diagnosis Discharge Diagnosis (1) Leukocytosis: Status: Acute (2) intolerance to labor, delivered, current hospitalization: Status: Acute (3) delivery delivered: Status: Acute (4) Pre-eclampsia, severe, third trimester: Status: Acute (5) Poor compliance with medication: Status: Acute (6) Poorly controlled type 2 diabetes mellitus: Status: Acute (7) Type 2 diabetes mellitus affecting in third trimester, antepartum: Status: Acute Problem List Completed Was Problem List Reviewed/Reconciled?: Yes Summary/Hosp Course Brief History: Patient presents for scheduled induction of labor. Indication: uncontrolled T2DM (on insulin) in . No regular/painful ctx. No LOF. No vaginal bleeding. Normal movement. No [place], vision changes, RUQ pain. Peripartum Data Delivery Method: Low Transverse Episiotomy Description: None Procedures: Procedures Operation Date: 07/22/24 00:09 Actual Procedure Side Surgeon p in OB Roxann Dalton MD Operation Date: 07/23/24 00:00 <No data on this case meets the specified criteria> Time Spent with Patient Time attestation: Total time spent providing and/or coordinating discharge services: Exam Vital Signs Temp Pulse Resp BP Pulse Ox O2 Del Method 98.9 F 84 19 129/76 97 Room Air 07/25/24 04:02 07/25/24 04:02 07/25/24 04:02 07/25/24 04:02 07/25/24 04:02 07/25/24 04:02 Discharge Plan Plan Patient Disposition: HOME (Self Care) Disposition Comment: Please see Dr Higuera within 1 week for postop check Patient condition on transfer: Stable Prescriptions/Referrals Prescriptions/Med Rec: New hydrocodone-acetaminophen 5-325 mg tablet 1 tab PO Q6H MDD 4 PRN (Reason: pain) Qty: 20 0RF Rx Instructions: She had a C section ibuprofen 800 mg tablet 800 mg PO Q6H PRN (Reason: pain) Qty: 30 0RF amoxicillin-pot clavulanate 875-125 mg tablet 1 tab PO Q12H Qty: 10 0RF No Action insulin glargine [Basaglar KwikPen U-100 Insulin] 100 unit/mL (3 mL) insulin pen 30 unit subcut QPM 30 Days Qty: 9 1RF insulin lispro [Humalog KwikPen Insulin] 100 unit/mL insulin pen 10 unit subcut TID 30 Days Qty: 9 2RF (DME) pen needle, diabetic 29 gauge x 1/2 needle See Rx Instructions .Route Qty: 200 0RF Rx Instructions: As directed four times a day (DME) Blood Glucose Test Strip See Rx Instructions .Route Qty: 100 4RF Rx Instructions: As directed four times a day (DME) lancets Misc See Rx Instructions .Route Qty: 100 4RF Rx Instructions: As directed four times a day (DME) blood-glucose meter Kit See Rx Instructions .ROUTE .MEDSUPPLY Qty: 1 0RF Rx Instructions: As directed Referrals: Karthik Higuera MD [Referring Provider] - Patient/Caregiver Discharge Instructions Discharge Activity: activity as tolerated Other Discharge Activity Instructions:: Follow up office 1 week. Don't leave the hospital until you have your pain medication or you can confirm your pharmacy is open today so you can pick it up before you go home. Education Materials: Types of Insulin, Understanding Preeclampsia, After Delivery [place] Concerns, After a , C Section Dc, Feel Healthy After, Taking Medicine for Diabetes, Type 2 Diabetes, Treatment of Diabetes, Gestational Hypertension Print Language: Bel[place]ian Stand Alone Forms: [facility] Award Info., Patient Portal Info Letter, LIZZY from Surgery Planned Discharge Date 07/25/24
[2024-07-25 08:45] VITALS: BP 138/81; PULSE 82; RESP 19; TEMP 36.9; O2SAT 97
[2024-07-25] MEDS: CALCIUM CARBONATE 600 MG TABLET PO (09:07)
[2024-07-25] MEDS: ENOXAPARIN SOD INJ 40 MG/0.4 ML SYRINGE SC (09:07)
[2024-07-25] MEDS: DOCUSATE SOD 100 MG CAPSULE PO (09:07)
--- NOTE | 2024-07-25 12:32 | PC.NURSE ---
Patient seen and cleared by Liz in social worker health services
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
[2024-07-25 15:20] VITALS: BP 134/81; PULSE 80; RESP 19; TEMP 37.2; O2SAT 98
== END 2024-07-25 16:33 | disposition home or self-care (01) | DRG 540 ==
LOC: S4SX 07-22 23:40 → S4NX 07-23 00:44
PROVIDERS: Admitting Provider Obstetrics & Gynecology; PCP Obstetrics & Gynecology; Visit Provider Specialist
PROC: (CPT 59514; principal; 2024-07-22 23:45)
DX: O24.12 Pre-existing type 2 diabetes mellitus, in childbirth (principal); Z3A.37 37 weeks gestation of pregnancy; Z37.0 Single live birth; O14.14 Severe pre-eclampsia complicating childbirth; O77.9 Labor and delivery complicated by fetal stress, unspecified; O99.02 Anemia complicating childbirth; O99.12 Other diseases of the blood and blood-forming organs and certain disorders involving the immune mechanism complicating childbirth; O99.214 Obesity complicating childbirth; E83.51 Hypocalcemia; D72.829 Elevated white blood cell count, unspecified; O99.284 Endocrine, nutritional and metabolic diseases complicating childbirth; Z91.148 Patient's other noncompliance with medication regimen for other reason
CPT/HCPCS: 36415; 59409; 76815; 80053; 80170; 80307; 81001; 82570; 83735; 84156; 84550; 85025; 85384; 85610; 85730; 86780; 86850; 86900; 86901; 86923; 94762; A4649; J0290; J0295; J0456; J0689; J1580; J1650; J1815; J1885; J2274; J2590; J2765; J2795; J3010; J3475; J3490; J7050; J7120; S0191; A9270; J1920; J2270

== ENCOUNTER → 2024-08-29 | Outpatient (CLI) | payer MEDICAID, SELFPAY | END | disposition home or self-care (01) | LOC: SWHD 13:07 | PROVIDERS: PCP Family Medicine; Referring Provider Family Medicine; Visit Provider Student in an Organized Health Care Education/Training Program | DX: T81.89XA Other complications of procedures, not elsewhere classified, initial encounter (principal); S31.109A Unspecified open wound of abdominal wall, unspecified quadrant without penetration into peritoneal cavity, initial encounter; X58.XXXA Exposure to other specified factors, initial encounter; I10 Essential (primary) hypertension; E66.9 Obesity, unspecified; O99.310 Alcohol use complicating pregnancy, unspecified trimester; E11.69 Type 2 diabetes mellitus with other specified complication | CPT/HCPCS: 99213; A9270; G0463 ==

== ENCOUNTER → 2024-09-05 | Outpatient (CLI) | payer MEDICAID, SELFPAY | END | disposition home or self-care (01) | LOC: SWHD 13:20 | PROVIDERS: PCP Obstetrics & Gynecology; Referring Provider Obstetrics & Gynecology; Visit Provider Student in an Organized Health Care Education/Training Program | DX: T81.89XA Other complications of procedures, not elsewhere classified, initial encounter (principal); S31.109A Unspecified open wound of abdominal wall, unspecified quadrant without penetration into peritoneal cavity, initial encounter; X58.XXXA Exposure to other specified factors, initial encounter; I10 Essential (primary) hypertension; E66.9 Obesity, unspecified; O99.310 Alcohol use complicating pregnancy, unspecified trimester; E11.69 Type 2 diabetes mellitus with other specified complication | CPT/HCPCS: 17250; A9270 ==

== ENCOUNTER → 2024-09-26 | Outpatient (CLI) | payer MEDICAID, SELFPAY | END | disposition home or self-care (01) | LOC: SWHD 13:43 | PROVIDERS: PCP Obstetrics & Gynecology; Referring Provider Obstetrics & Gynecology; Visit Provider Student in an Organized Health Care Education/Training Program | DX: T81.89XA Other complications of procedures, not elsewhere classified, initial encounter (principal); S31.109A Unspecified open wound of abdominal wall, unspecified quadrant without penetration into peritoneal cavity, initial encounter; X58.XXXA Exposure to other specified factors, initial encounter; I10 Essential (primary) hypertension; E66.9 Obesity, unspecified; E11.69 Type 2 diabetes mellitus with other specified complication | CPT/HCPCS: 99213; G0463 ==

== ENCOUNTER → 2024-10-12 | Outpatient (CLI) | payer MEDICAID, SELFPAY | END | disposition home or self-care (01) | LOC: SWHD 14:59 | PROVIDERS: PCP Obstetrics & Gynecology; Referring Provider Obstetrics & Gynecology; Visit Provider Student in an Organized Health Care Education/Training Program | DX: T81.89XA Other complications of procedures, not elsewhere classified, initial encounter (principal); S31.109A Unspecified open wound of abdominal wall, unspecified quadrant without penetration into peritoneal cavity, initial encounter; X58.XXXA Exposure to other specified factors, initial encounter; I10 Essential (primary) hypertension; E66.9 Obesity, unspecified; E11.69 Type 2 diabetes mellitus with other specified complication | CPT/HCPCS: 99212; G0463 ==